=== PATIENT | male | born 1990 | race Asian ===

== ENCOUNTER 2017-04-18 20:00 | Emergency (ER) | payer OTHER ==
[~2017-04-18] VITALS: Ht 180.3 cm; Wt 85.7 kg
[2017-04-18] MEDS ORDERED: NKM (20:05)
[2017-04-18 20:58] VITALS: BP 164/114
--- NOTE | 2017-04-18 21:24 | Emergency Room Report ---
History of Present Illness General Chief Complaint: Lower Extremity Injury Source: Patient Present Illness HPI 26-year-old male presents ED complaining of right knee pain. Patient is a nurse here at [employer]. States that tonight he was trying to restrain another patient into the process injured his knee. States his knee felt like it popped. Denies falling. Notes 3/10 pain to the right knee. Throbbing, nonradiating. is able to bear weight. States he has had instances in the past where his knee has popped. Denies any other injuries. Mother aggravating relieving factors. Denies any other associated symptoms Allergies: Coded Allergies: No Known Allergies (Unverified , 04/18/17) Patient History Past Medical History: none Past Surgical History: none Pertinent Family History: none Social History: Denies: smoking, alcohol use, drug use Immunizations: UTD Reviewed Nursing Documentation: PMH: Agreed, PSxH: Agreed Nursing Documentation-PMH Hx Hypertension: Yes Review of Systems All Other Systems: negative except mentioned in HPI Physical Exam Vital Signs Date Time Temp Pulse Resp B/P (MAP) Pulse Ox O2 Delivery O2 Flow Rate FiO2 04/18/17 20:01 98.2 74 18 164/114 98 Room Air Sp02 EP Interpretation: reviewed, normal General Appearance: no apparent distress, alert, GCS 15, non-toxic Head: normocephalic, atraumatic Eyes: bilateral eye normal inspection, bilateral eye PERRL ENT: hearing grossly normal, normal pharynx, no angioedema, normal voice Neck: full range of motion, supple/symm/no masses Respiratory: chest non-tender, lungs clear, normal breath sounds, speaking full sentences Cardiovascular #1: regular rate, rhythm, no edema Cardiovascular #2: 2+ carotid (R), 2+ carotid (L), 2+ radial (R), 2+ radial (L) , 2+ dorsalis pedis (R), 2+ dorsalis pedis (L) Gastrointestinal: normal bowel sounds, non tender, soft, non-distended, no guarding, no rebound Rectal: deferred Genitourinary: normal inspection, no CVA tenderness Musculoskeletal: back normal, gait/station normal, normal range of motion, non- tender Neurologic: alert, oriented x3, responsive, motor strength/tone normal, sensory intact, speech normal Psychiatric: judgement/insight normal, memory normal, mood/affect normal, no suicidal/homicidal ideation Reflexes: 3+ bicep (R), 3+ bicep (L), 3+ tricep (R), 3+ tricep (L), 3+ knee (R) , 3+ knee (L) Skin: normal color, no rash, warm/dry, well hydrated Lymphatic: no adenopathy Medical Decision Making Diagnostic Impression: Primary Impression: Knee injury Qualified Codes: S89.91XA - Unspecified injury of right lower leg, initial encounter ER Course Hospital Course 26-year-old M presents to ED complaining of R knee pain Differential diagnoses include: Fracture, dislocation, sprain, contusion Clinical course Patient placed on stretcher. After initial history and physical, I ordered Xrays of R knee Patient declined pain medication Xrays prelim read shows no acute fracture/dislocation. I offered patient option for Jerson wrap or crutches. Patient declined stating he has a knee brace at home Diagnosis - knee injury Stable and discharged to home. apply ice, keep elevated. weight bear as tolerated. Followup with PMD. Return to ED if symptoms recur or worsen Other X-Ray Diagnostic Results Other X-Ray Diagnostic Results : X-Ray ordered: R knee # of Views/Limited Vs Complete: 3 View Indication: Pain EP Interpretation: Yes Interpretation: no dislocation, no soft tissue swelling, no fractures Impression: No acute disease Electronically Signed by: Electronically signed by Jurgen Alfred MD Last Vital Signs Date Time Temp Pulse Resp B/P (MAP) Pulse Ox O2 Delivery O2 Flow Rate FiO2 04/18/17 20:58 98.2 18 164/114 98 Room Air 04/18/17 20:01 74 Status: improved Disposition: HOME, SELF-CARE Condition: Stable Departure Forms: Return to Work Return to Work Date: Apr 21, 2017 Work Restrictions: No Prolonged Standing Patient Instructions: Knee Pain, [id number] JURGEN ALFRED M.D. Apr 18, 2017 21:24
--- NOTE | 2017-04-19 10:54 | Diagnostic Imaging Report ---
Indication: Pain 3 views of the right knee were obtained. Findings: No acute fracture, malalignment, or joint effusion are identified. Joint space is relatively well-maintained. The lateral view is technically poor. Impression: Negative for acute findings. Limited lateral view.
== END 2017-04-18 21:21 | disposition home or self-care (01) ==
LOC: EMR 20:34
DX: S89.91XA Unspecified injury of right lower leg, initial encounter (principal); X58.XXXA Exposure to other specified factors, initial encounter; Y93.F9 Activity, other caregiving; Y99.9 Unspecified external cause status
CPT/HCPCS: 99283